=== PATIENT | female | born 1990 | race Caucasian/White ===

== ENCOUNTER 2017-01-23 11:45 | Inpatient (IN) | payer OTHER ==
[2017-01-23] MEDS ORDERED: DINOPROSTONE 10 MG VAGINAL SUPPOSITORY VG ONE (14:30)
[2017-01-23] MEDS ORDERED: PROMETHAZINE HCL 25 MG/1 ML VIAL IVPUSH ONE (14:31)
[2017-01-23] MEDS ORDERED: BUTORPHANOL TARTRATE 1 MG/ML VIAL IVPB ONE (14:31)
[2017-01-23] MEDS ORDERED: SODIUM PHOSPHATE/NA BIPHOS 133 ML ENEMA PR ONE (14:35)
[2017-01-23] MEDS ORDERED: DEXTROSE 5%-LACTATED RINGERS 1,000 ML IV SCH (14:45)
[2017-01-23 14:47] VITALS: BMI 27.8
--- NOTE | 2017-01-23 15:22 | HP ---
Past Medical History - Primary Care Physician PCP:: Cary Pena - Admission Chief Complaint: 26 yrs , 40.2 weeks sent from the clinic due to variable decleration noted on NST, BPP done today is reported VEL 6.35, largest pocket 2.71 cm, BPP 8/8, EFW 6'11". Due to Mild Oligohydramnios she is admitted for induction of labor History of Present Illness: PNC at [address] [place] [address] wt gain 14 lbs work Up: AB pos, Rpr nr, Hbsag neg, Rubella pos, Quantiferon neg, Hiv neg, ! hr Gtt 110, GBS neg. NTsreen neg, Modified sequential neg sono done reviewed . 22 weeks sono reported choroid plexus [id number] subsequent sono no mention of it. History Source: Patient, Medical Record Limitations to Obtaining History: No Limitations - Past Medical History PRESS FEEDER: Yes: Migraine (before , treated with sumigran plus. last migraine episode during , 3 months ago rx po Tylenol prn) Cardiovascular: No: HTN, Murmur Pulmonary: No: Asthma Gastrointestinal: No: Constipation Hepatobiliary: No: Cholelithiasis Renal/: No: UTI ...: 1 ...Para: 0 ...LMP: 04/16/ ... Weeks Gestation by Dates: 40.2 ...EDC by Dates: 01/21/17 ...EDC by Sono: 01/21/17 Infectious Disease: No: HIV, STD's Psych: No: Addictions, Anxiety, Bipolar, Depression Endocrine: Yes: Hypothyroidism (rx synthyroid 75 mcg). No: Diabetes Insipidus, Diabetes Mellitus - Past Surgical History Past Surgical History: Yes: Tonsillectomy (age 5 yrs) Hx Myomectomy: No Hx Transabdominal Cerclage: No - Smoking History Smoking history: Never smoked Have you smoked in the past 12 months: No - Alcohol/Substance Use Hx Alcohol Use: No History of Substance Use: reports: None Home Medications - Allergies Allergies/Adverse Reactions: Allergies Allergy/AdvReac Type Severity Reaction Status Date / Time No Known Allergies Allergy Verified 01/23/17 12:21 - Home Medications Home Medications: Ambulatory Orders Tablet 1 tab PO DAILY 01/23/17 Synthroid 75 mcg PO DAILY 04/21/17 Physical Exam - Maternity Vital Signs: Vital Signs Temperature 98.7 F 01/23/17 14:36 Pulse Rate 59 L 01/23/17 14:36 Respiratory Rate 20 01/23/17 14:36 Blood Pressure 123/72 01/23/17 14:36 O2 Sat by Pulse Oximetry (%) Constitutional: Yes: Well Nourished, No Distress Eyes: Yes: WNL HENT: Yes: WNL. No: Normocephalic Neck: Yes: WNL Cardiovascular: Yes: WNL Lungs: Clear to auscultation Breast(s): Yes: WNL - Abdominal Exam/OB Fundal Height: 40 Number of Fetuses: Single Presentation: Vertex Contractions: No Monitor Mode: External Heart Rate (range): 130-150 Heart Rate Location: [facility] Category: I Accelerations: Uniform Decelerations: None - Vaginal Exam/OB Vaginal Bleediing: No Speculum Exam: No Dilatation (cm): close Effacement (%): unefface Amniotic Membrane Status: Intact Presentation: Vertex/Position Station: -3 - Physical Exam Musculoskeletal: Yes: WNL Extremities: Yes: WNL Edema: Yes Edema: LLE: 1+, RLE: 1+ Integumentary: Yes: WNL Deep Tendon Reflex Grade: Normal +2 ...Motor Strength: WNL Psychiatric: Yes: WNL, Alert, Oriented - Labs Lab Results: Laboratory Tests 01/23/17 01/23/17 01/23/17 15:30 15:30 15:30 WBC 10.7 H Hgb 11.9 Hct 34.8 Plt Count 254 Neutrophils % 66.5 Lymphocytes % 25.1 Monocytes % 7.5 INR 0.92 PTT (Actin FS) 27.7 Sodium 136 Potassium 3.8 Chloride 105 Carbon Dioxide 24 BUN 9 Creatinine 0.5 L Random Glucose 73 L Calcium 8.7 Blood Type 01/23/17 15:30 WBC Hgb Hct Plt Count Neutrophils % Lymphocytes % Monocytes % INR PTT (Actin FS) Sodium Potassium Chloride Carbon Dioxide BUN Creatinine Random Glucose Calcium Blood Type AB POSITIVE Problem List - Problems (1) Post term over 40 weeks Code(s): O48.0 - POST-TERM (2) Oligohydramnios Code(s): O41.00X0 - OLIGOHYDRAMNIOS, UNSP TRIMESTER, NOT APPLICABLE OR UNSP Qualifiers: Trimester: third trimester (3) Elective induction of labor planned Code(s): [id number] - Assessment/Plan 26 yrs G1Po 40 .2 weeks , mild oligohydramnios( VEL 6.35cm) ,GBS neg, for induction of labor . Plan Cervidil Induction of labor Trial vaginal delivery
[2017-01-23 16:45] LABS: BASOPHIL 0.2 % (0-2.0); EOSINOPHIL 0.7 % (0-4.5); MCH 29.4 pg (25.7-33.7); MCHC 34.2 g/dl (32.0-36.0); MEAN CELL VOLUME 86.1 fl (80-96); MEAN PLT VOLUME 10.2 fl (7.5-11.1); NEUTROPHILS 66.5 % (42.8-82.8); PLATELET COUNT 254 K/MM3 (134-434); RDW 13.1 % (11.6-15.6); WHITE BLOOD COUNT 10.7 K/mm3 (4.0-10.0)
[2017-01-23 17:01] LABS: CALCIUM 8.7 mg/dL (8.5-10.1); COCKROFT - GAULT 188.3175; CREATININE 0.5 mg/dL (0.55-1.02)
[2017-01-23 17:24] LABS: INR 0.92 (0.82-1.09); PROTHROMBIN TIME (PATIENT) 10.1 SEC (9.98-11.88)
[2017-01-23 17:27] LABS: ACTIVATED PTT 27.7 SECONDS (26.9-34.4)
--- NOTE | 2017-01-24 00:22 | PN ---
Progress Note, Labor Vaginal Exam #1 Labor Exam Date: 01/24/17 Labor Exam Time: 00:15 Heart Rate (range): 140 Dilatation: 3 Effacement (%): 70 Amniotic Membrane Status: Intact Presentation: Vertex/Position Station: -2 (-2/-1) Remarks: fhr cat-1 uc q1-2 min cervidil removed fleets enema, shower Selected Entries 01/23/17 23:00 Temperature 98.3 F Pulse Rate 82 Blood Pressure 133/89 stadol prn Vaginal Exam #2 Labor Exam Date: 01/24/17 Labor Exam Time: 04:16 Heart Rate (range): 140-110 Dilatation: 6-7 Effacement (%): 90 Amniotic Membrane Status: Ruptured (AROM no fluid, scalp electrode) Presentation: Vertex/Position Station: 0 Remarks: recuurent late & variable decels are noted, bradycardia to 90- bpm 5 min position changed from rt lat to lt lat to back O2 continue pitocin was d/yoselyn plan delivery by primary c/section Note stadol was given at 1.15 am followed by epidural at 3.15 am
[2017-01-24] MEDS ORDERED: OXYTOCIN 15 UNITS/ LR 250 ML 250 ML IVPB SCH (02:20)
[2017-01-24] MEDS ORDERED: ELECTROLYTE-148 SOLN 500 ML IV ONE (03:00)
[2017-01-24] MEDS ORDERED: FENTANYL/BUPIVACAINE/NS/PF - PCEA - 50 ML DISP.SYRIN EP SCH (03:45)
[2017-01-24] MEDS ORDERED: CITRIC ACID/SODIUM CITRATE 30 ML UNIT-DOSE CUP PO ONE (04:29)
[2017-01-24] MEDS ORDERED: ELECTROLYTE-148 SOLN 1,000 ML IV SCH (04:30)
[2017-01-24 05:15] LABS: ARTERIAL BLOOD GAS BASE EXCESS -3.4 meq/l (-2-2); ARTERIAL BLOOD GAS PO2 13.5 mmHg (80-100); ARTERIAL BLOOD GAS pH 7.23 (7.35-7.45)
[2017-01-24 05:18] LABS: LPM/O2% 21%; PT. ON O2? NO; TYPE OF O2 ROOM AIR
[2017-01-24 05:19] LABS: ARTERIAL BLD GAS O2 SATURATION 11.4 % (90-98.9)
[2017-01-24 05:23] LABS: VENOUS BLOOD GAS HCO3 24.8 meq/L (19-25); VENOUS PH 7.3 (7.32-7.42)
[2017-01-24] MEDS ORDERED: morphine SULFATE/Preservative Free 0.5 MG/ML (1cc Syringe) EP ONE (05:25)
[2017-01-24] MEDS ORDERED: SENNOSIDES/DOCUSATE COMBO (SENNA PLUS) TABLET (UD) PO PRN (05:41)
[2017-01-24] MEDS ORDERED: METHYLERGONOVINE MALEATE 0.2 MG/1 ML AMP IM PRN (05:41)
[2017-01-24] MEDS ORDERED: ONDANSETRON 4 MG/2 ML VIAL IVPB PRN (05:47)
[2017-01-24] MEDS ORDERED: ACETAMINOPHEN 325 MG TABLET (FP) PO PRN (05:47)
--- NOTE | 2017-01-24 05:56 | OP ---
Operative Note - Note: Operative Date: 01/24/17 Pre-Operative Diagnosis: 40.3 weeks, oligohydramnios , non reassuring FHR Operation: Primary LFTC/Section Findings: 4.55am , baby girl, 9/9, wt 6'6" , Lop position , cord around neck, no fluid both tubes & ovaries normal. pulpit operator Dr Reddy present in the room Surgeon: Cary Pena Thermograph Operator: Zoila Bella Anesthesiologist/STRAIGHT CUTTER MACHINE: Steve Meyer Anesthesia: Epidural Specimens Removed: placenta. cord blood gas. cord blood Estimated Blood Loss (mls): 700 Drains, Volume Out (mls): 100 (severino output , jacoby color ) Fluid Volume Replaced (mls): 1,500 (iv ancef intraop) Operative Report Dictated: Yes
--- NOTE | 2017-01-24 06:14 | PN ---
Delivery - Delivery Section: Primary, Low Flap Transverse (indication : 40.3 weeks , oligohydramnios , non reassuring FHR) Type of Anesthesia: Epidural EBL (cc): 700 (100 ml severino out put, jacoby color ) Delivery, Single - Stages of Labor Date 1st Stage Initiatied: 01/23/17 Time 1st Stage Initiated: 22:00 Date of Delivery: 01/24/17 Time of Delivery: 04:55 Date Placenta Delivered: 01/24/17 Time Placenta Delivered: 04:56 Placenta: Yes: Manual Removal, Uterine Exploration - Condition of Infant Network Planner/Fingerprint Technician Present: Yes Name: Clary Reddy Gender: Female Weight: 6 lb 6 oz Position: Left, OP (cord around neck) Total Hours ROM (Hrs/Mins): 46 min, No fluid in utero - 1 Minute Total Score: 9 5 Minutes Total Score: 9 - [place] Feeding Plan Initial Plan: Exclusive throughout hospitalization Remarks - Remarks Remarks: 26 yrs 40.3 weeks ,oligohydramnios ( VEL 6.35) , variable decel on NT, Bpp8/8, admitted on 01/23/17 for induction of labor pnc at [address] [place] [address] GBS neg Cervidil inserted on 01/23/17 at 3.00pm , removed at 12.15 am 01/24/17 due to tachysystole stadol followed by epidural labor analgesia was given non reassuring FHR ( bradycardia 90bpm x5 min ) pt was taken for c/section Intraop IV ancef 1 gm given intraop course was uneventful
[2017-01-24] MEDS: D5W-LR W/ 20 UNITS OXYTOCIN 1,000 ML IV SCH ×2 (06:30→15:37)
--- NOTE | 2017-01-24 07:41 | OP ---
DATE OF OPERATION: 01/24/2017 PREOPERATIVE DIAGNOSIS: At 40.3 weeks, oligohydramnios, nonreassuring heart. OPERATION: Primary low flap transverse section. SURGEON: Cary Pena MD TRAFFIC LAW ATTORNEY SURGEON: Zoila Bella MD ANESTHESIA:Steve Meyer MD, epidural. FINDINGS: This is a 26-year-old 1, para 0 at 40.2 weeks who was admitted due to variable decelerations on the NST. Biophysical profile was 8/8 with oligohydramnios. VEL was 6.5. The patient was induced with a Cervidil, which was removed at 12:15 a.m., and she was 2-3 cm dilated. She had dilated up to 6-7 cm , and membranes were ruptured, and she had intermittent category 2 to category 1 tracing. Just before decision of the section, she had bradycardia of 90 beats per minute for 5 minutes, so it was decided to deliver via section. DESCRIPTION OF PROCEDURE: The patient is taken to the operating room table. Tang catheter was placed. Epidural was reinforced. Abdomen was shaved and prepped. She was in supine position. Abdomen was painted and draped with ChloraPrep and draped in the usual manner. Pfannenstiel incision was made in skin and subcutaneous tissue. Anterior rectus sheath was incised transversely. Bleeding points were clamped and cauterized. Rectus muscle was from the rectus sheath. Parietal peritoneum was opened vertically. The lower flap bladder peritoneum was incised transversely, and the lower uterine segment was incised transversely. There was umblical cord came out of the incision, and the baby was delivered from LOP position at 4:55 a.m., baby girl. Apgars were 9/9. The baby's weight is 6.6 pounds, 19 inches long. Cord was clamped. Cord blood was collected. Before that, cord segment was also preserved for the cord blood gas. Dr. Reddy, neonatalologist, was present in the room. Placenta was removed completely with the membranes and then the uterine incision was closed in 2 layers. First layer was a continuous locking with Biosyn single suture. Second layer was closed with a Biosyn single suture continuous intermittent locking. Vertical mattress sutures were taken. Hemostasis was checked, and bladder peritoneum also was closed with a Biosyn single suture. Both tubes and ovaries were normal. Irrigation was done. Sponge, instrument, and needle count was correct, and the closure of the abdominal wall and parietal peritoneum was closed with Vicryl 0 suture. Muscles were approximated together with Vicryl sutures. Intermittent sutures were taken and then anterior rectus sheath was closed with a Vicryl 0 suture. Continuous sutures were taken. Subcutaneous tissue was approximated with Biosyn single suture. Hemostasis was verified, and the skin was approximated with the frances. Pressure dressing was given. The patient tolerated the procedure well. Blood clots were removed from the vagina. She was transferred to the recovery room in stable condition. She reports IV Ancef 1 g prior to the incision, and an estimated blood loss of 700 mL. Intraoperative urine output was 100 mL. Javy [id number] MTDD
[2017-01-24] MEDS ORDERED: CEFAZOLIN (PRE-DOCKED) 50 ML IVPB ONE ×2 (09:44→17:02)
[2017-01-24] MEDS: CEFAZOLIN 1 GM/D5W 50 ML IVPB SCH ×2 (10:07→17:17)
[2017-01-24] MEDS: IBUPROFEN 800 MG/8 ML IJ IVPB PRN (20:07)
[2017-01-24] MEDS ORDERED: oxyCODONE HCL 5 MG TABLET PO PRN (22:00)
[2017-01-25] MEDS ORDERED: CEFAZOLIN (PRE-DOCKED) 50 ML IVPB ONE (01:28)
[2017-01-25] MEDS: CEFAZOLIN 1 GM/D5W 50 ML IVPB SCH (01:29)
[2017-01-25] MEDS: IBUPROFEN 800 MG/8 ML IJ IVPB PRN (04:57)
[2017-01-25] MEDS ORDERED: BISACODYL 10 MG SUPP.RECT RC PRN (05:41)
[2017-01-25] MEDS: D5W-LR W/ 20 UNITS OXYTOCIN 1,000 ML IV SCH (06:24)
[2017-01-25 08:51] LABS: BASOPHIL 0.2 % (0-2.0); EOSINOPHIL 0.2 % (0-4.5); MCH 29.5 pg (25.7-33.7); MCHC 33.9 g/dl (32.0-36.0); MEAN CELL VOLUME 87.2 fl (80-96); MEAN PLT VOLUME 9.2 fl (7.5-11.1); NEUTROPHILS 78.7 % (42.8-82.8); PLATELET COUNT 186 K/MM3 (134-434); RDW 13.7 % (11.6-15.6); WHITE BLOOD COUNT 15.1 K/mm3 (4.0-10.0)
[2017-01-25] MEDS: ENOXAPARIN NA (PORCINE) 40 MG/0.4 ML DISP.SYRIN SQ SCH (09:11)
[2017-01-25] MEDS: PRENATAL VITAMINS W/ FOLIC ACID TABLET (FP) PO SCH (09:11)
[2017-01-25] MEDS ORDERED: DIPHTH,PERTUSS(ACELL),TET 0.5 ML DISP.SYRIN IM ONE (10:00)
--- NOTE | 2017-01-25 10:00 | PN ---
Post Progress Note - Subjective Subjective: c/o pain , scale , 4-5/10 voided after severino is taken out Post Day: 1 Type of Delivery: Primary C/S Vital Signs: Vital Signs Temperature 97.8 F 01/25/17 08:23 Pulse Rate 68 01/25/17 08:23 Respiratory Rate 18 01/25/17 08:23 Blood Pressure 117/63 01/25/17 08:23 O2 Sat by Pulse Oximetry (%) 100 01/24/17 06:45 Breast Exam: Yes: Soft, Other (plans to BF ). No: Engorged Uterus: Yes: Fundus Firm, Fundus below umbilicus, Non-tender Incision: Yes: Dressing dry and intact. No: Redness, Oozing Abdomen/GI: Yes: Abdomen soft (bs active ), Passing flatus, Tolerating PO ( clear liqids ). No: Abdominal Distention, Tender Lochia: Yes: Rubra Lochia, amount: Moderate Extremities: Yes: Calves non-tender Perineum: Yes: Intact Activity: Ambulating - Labs Labs: CBC WBC 15.1 K/mm3 (4.0-10.0) H D 01/25/17 07:30 RBC 3.21 M/mm3 (3.60-5.2) L D 01/25/17 07:30 Hgb 9.5 GM/dL (10.7-15.3) L D 01/25/17 07:30 Hct 28.0 % (32.4-45.2) L D 01/25/17 07:30 MCV 87.2 fl (80-96) 01/25/17 07:30 MCHC 33.9 g/dl (32.0-36.0) 01/25/17 07:30 RDW 13.7 % (11.6-15.6) 01/25/17 07:30 Plt Count 186 K/MM3 (134-434) D 01/25/17 07:30 MPV 9.2 fl (7.5-11.1) 01/25/17 07:30 Neutrophils % 78.7 % (42.8-82.8) 01/25/17 07:30 Lymphocytes % 13.3 % (8-40) D 01/25/17 07:30 Monocytes % 7.6 % (3.8-10.2) 01/25/17 07:30 Eosinophils % 0.2 % (0-4.5) 01/25/17 07:30 Basophils % 0.2 % (0-2.0) 01/25/17 07:30 Problem List - Problems (1) Post term over 40 weeks Code(s): O48.0 - POST-TERM (2) Oligohydramnios Code(s): O41.00X0 - OLIGOHYDRAMNIOS, UNSP TRIMESTER, NOT APPLICABLE OR UNSP Qualifiers: Trimester: third trimester (3) Elective induction of labor planned Code(s): [id number] - Assessment/Plan stable. Anemia plan ct po care encourage po fluids & ambulation, & deep breathing
--- NOTE | 2017-01-25 15:03 | PN ---
Progress Note (short form) - Note Progress Note: 01/25/17 1504 ANESTHESIOLOGY POST-OP CHECK 26F s/p under epidural anesthesia POD #1. C/o mild headache that started ~1 hour ago and is not positional and feels like one of her previous migraines. Ambulating, tolerting PO. Denies N/V, backache, numbness, weakness. Pain 6/10 and tolerable. Vital Signs Temperature 97.8 F 01/25/17 08:23 Pulse Rate 68 01/25/17 08:23 Respiratory Rate 18 01/25/17 08:23 Blood Pressure 117/63 01/25/17 08:23 O2 Sat by Pulse Oximetry (%) 100 01/24/17 06:45 Active Medications Acetaminophen (Tylenol -) 650 mg PO Q4H PRN PRN Reason: FEVER OR PAIN Bisacodyl (Dulcolax Suppository -) 10 mg RC PRN PRN PRN Reason: CONSTIPATION Diphenhydramine HCl (Benadryl Injection -) 25 mg IVPUSH Q4H PRN PRN Reason: Pruritis Enoxaparin Sodium (Lovenox -) 40 mg SQ DAILY [facility] Last Admin: 01/25/17 09:11 Dose: 40 mg Ferrous Sulfate (Feosol -) 325 mg PO BID [facility] Dextrose/Lactated Ringer's (Pitocin 20 Units In D5-Lr -) 1,000 mls @ 125 mls/ hr IV ASDIR [facility] Last Admin: 01/25/17 06:24 Dose: Not Given Ibuprofen (Motrin -) 600 mg PO Q4H PRN PRN Reason: PAIN Ibuprofen (Caldolor Injection -) 800 mg IVPB Q8H PRN PRN Reason: PAIN OR FEVER Last Admin: 01/25/17 04:57 Dose: 800 mg Methylergonovine Maleate (Methergine Injection -) 0.2 mg IM Q4H PRN PRN Reason: Excessive Bleeding (L&D) Oxycodone HCl (Roxicodone -) 5 mg PO Q4H PRN PRN Reason: PAIN LEVEL 1-5 Oxycodone HCl (Roxicodone -) 10 mg PO Q4H PRN PRN Reason: PAIN LEVEL 6-10 Multivit/Folic Acid/Iron ( Vitamins (Sjr) -) 1 tab PO DAILY [facility] Last Admin: 01/25/17 09:11 Dose: 1 tab Senna/Docusate Sodium (Pericolace -) 2 tablet PO HS PRN PRN Reason: CONSTIPATION Simethicone (Mylicon -) 80 mg PO Q4H PRN PRN Reason: GAS Gen: Awake, alert Ext: No motor or sensory deficits No apparent anesthesia complications. pain controlled. Advised to increase fluid intake. Continue management as per primary team.
[2017-01-25] MEDS: ACETAMINOPHEN 325 MG TABLET (FP) PO PRN ×2 (15:22→21:27)
[2017-01-25] MEDS: SIMETHICONE 80 MG TAB.CHEW (FP) PO PRN (21:26)
[2017-01-25] MEDS: FERROUS SO4 325 MG TABLET (FP) PO SCH (21:26)
[2017-01-25] MEDS: oxyCODONE HCL 5 MG TABLET PO PRN (21:26)
[2017-01-26] MEDS: ACETAMINOPHEN 325 MG TABLET (FP) PO PRN ×3 (04:42→19:50)
[2017-01-26] MEDS: SIMETHICONE 80 MG TAB.CHEW (FP) PO PRN ×2 (04:43→19:53)
[2017-01-26] MEDS: oxyCODONE HCL 5 MG TABLET PO PRN ×3 (04:43→19:49)
[2017-01-26] MEDS: D5W-LR W/ 20 UNITS OXYTOCIN 1,000 ML IV SCH (06:04)
--- NOTE | 2017-01-26 07:56 | PN ---
Post Progress Note - Subjective Subjective: no c/o pain , scale 4-5. voiding without difficulty Post Day: 2 Type of Delivery: Primary C/S Vital Signs: Vital Signs Temperature 97.8 F 01/26/17 07:45 Pulse Rate 73 01/26/17 07:45 Respiratory Rate 18 01/26/17 07:45 Blood Pressure 120/80 01/26/17 07:45 O2 Sat by Pulse Oximetry (%) 100 01/24/17 06:45 Breast Exam: Yes: Soft. No: Engorged Uterus: Yes: Fundus Firm, Fundus below umbilicus, Non-tender Incision: Yes: [place] intact. No: Redness, Oozing Abdomen/GI: Yes: Abdomen soft, Passing flatus (bm not done ), Tolerating PO ( diet ). No: Abdominal Distention, Tender Lochia: Yes: Rubra Lochia, amount: Moderate Extremities: Yes: Calves non-tender, Edema Perineum: Yes: Intact Activity: Ambulating - Labs Labs: CBC WBC 15.1 K/mm3 (4.0-10.0) H D 01/25/17 07:30 RBC 3.21 M/mm3 (3.60-5.2) L D 01/25/17 07:30 Hgb 9.5 GM/dL (10.7-15.3) L D 01/25/17 07:30 Hct 28.0 % (32.4-45.2) L D 01/25/17 07:30 MCV 87.2 fl (80-96) 01/25/17 07:30 MCHC 33.9 g/dl (32.0-36.0) 01/25/17 07:30 RDW 13.7 % (11.6-15.6) 01/25/17 07:30 Plt Count 186 K/MM3 (134-434) D 01/25/17 07:30 MPV 9.2 fl (7.5-11.1) 01/25/17 07:30 Neutrophils % 78.7 % (42.8-82.8) 01/25/17 07:30 Lymphocytes % 13.3 % (8-40) D 01/25/17 07:30 Monocytes % 7.6 % (3.8-10.2) 01/25/17 07:30 Eosinophils % 0.2 % (0-4.5) 01/25/17 07:30 Basophils % 0.2 % (0-2.0) 01/25/17 07:30 Problem List - Problems (1) Post term over 40 weeks Code(s): O48.0 - POST-TERM (2) Oligohydramnios Code(s): O41.00X0 - OLIGOHYDRAMNIOS, UNSP TRIMESTER, NOT APPLICABLE OR UNSP Qualifiers: Trimester: third trimester (3) Elective induction of labor planned Code(s): VKA0726 - Assessment/Plan stable. . plan ct po care
[2017-01-26] MEDS: PRENATAL VITAMINS W/ FOLIC ACID TABLET (FP) PO SCH (10:27)
[2017-01-26] MEDS: FERROUS SO4 325 MG TABLET (FP) PO SCH ×2 (10:27→21:38)
[2017-01-26] MEDS: ENOXAPARIN NA (PORCINE) 40 MG/0.4 ML DISP.SYRIN SQ SCH (10:28)
[2017-01-27] MEDS: SIMETHICONE 80 MG TAB.CHEW (FP) PO PRN ×4 (05:25→20:29)
[2017-01-27] MEDS: oxyCODONE HCL 5 MG TABLET PO PRN ×4 (05:25→20:28)
[2017-01-27] MEDS: ACETAMINOPHEN 325 MG TABLET (FP) PO PRN ×2 (05:26→20:27)
--- NOTE | 2017-01-27 06:12 | PN ---
Post Progress Note - Subjective Subjective: pt resting, no acute distress Post Day: 3 Type of Delivery: Primary C/S Vital Signs: Vital Signs Temperature 98.2 F 01/26/17 20:36 Pulse Rate 80 01/26/17 20:36 Respiratory Rate 18 01/26/17 20:36 Blood Pressure 123/80 01/26/17 20:36 O2 Sat by Pulse Oximetry (%) 100 01/24/17 06:45 Breast Exam: Yes: Soft Uterus: Yes: Fundus Firm Incision: Yes: Simone intact Abdomen/GI: Yes: Abdomen soft Lochia: Yes: Rubra Lochia, amount: Small Extremities: Yes: Calves non-tender Perineum: Yes: Intact Activity: Ambulating - Labs Labs: CBC WBC 15.1 K/mm3 (4.0-10.0) H D 01/25/17 07:30 RBC 3.21 M/mm3 (3.60-5.2) L D 01/25/17 07:30 Hgb 9.5 GM/dL (10.7-15.3) L D 01/25/17 07:30 Hct 28.0 % (32.4-45.2) L D 01/25/17 07:30 MCV 87.2 fl (80-96) 01/25/17 07:30 MCHC 33.9 g/dl (32.0-36.0) 01/25/17 07:30 RDW 13.7 % (11.6-15.6) 01/25/17 07:30 Plt Count 186 K/MM3 (134-434) D 01/25/17 07:30 MPV 9.2 fl (7.5-11.1) 01/25/17 07:30 Neutrophils % 78.7 % (42.8-82.8) 01/25/17 07:30 Lymphocytes % 13.3 % (8-40) D 01/25/17 07:30 Monocytes % 7.6 % (3.8-10.2) 01/25/17 07:30 Eosinophils % 0.2 % (0-4.5) 01/25/17 07:30 Basophils % 0.2 % (0-2.0) 01/25/17 07:30 Assessment/Plan as above oob reg diet pain meds
[2017-01-27] MEDS: IBUPROFEN 600 MG TABLET (FP) PO PRN ×3 (08:12→20:27)
[2017-01-27 08:46] LABS: BASOPHIL 0.2 % (0-2.0); EOSINOPHIL 1.2 % (0-4.5); MCHC 33.1 g/dl (32.0-36.0); MEAN CELL VOLUME 87.5 fl (80-96); MEAN PLT VOLUME 7.9 fl (7.5-11.1); NEUTROPHILS 70.2 % (42.8-82.8); PLATELET COUNT 280 K/MM3 (134-434); RDW 13.4 % (11.6-15.6); WHITE BLOOD COUNT 12.6 K/mm3 (4.0-10.0)
[2017-01-27] MEDS: ENOXAPARIN NA (PORCINE) 40 MG/0.4 ML DISP.SYRIN SQ SCH (10:29)
[2017-01-27] MEDS: PRENATAL VITAMINS W/ FOLIC ACID TABLET (FP) PO SCH (10:29)
[2017-01-27] MEDS: FERROUS SO4 325 MG TABLET (FP) PO SCH ×2 (10:29→21:02)
[2017-01-27] MEDS: D5W-LR W/ 20 UNITS OXYTOCIN 1,000 ML IV SCH (10:30)
--- NOTE | 2017-01-28 08:11 | DS ---
Physical Exam-BEATER ROOM HELPER Vital Signs: Vital Signs Temperature 97.0 F L 01/27/17 22:00 Pulse Rate 73 01/27/17 22:00 Respiratory Rate 18 01/27/17 22:00 Blood Pressure 132/75 01/27/17 22:00 O2 Sat by Pulse Oximetry (%) 100 01/24/17 06:45 Constitutional: Yes: Well Nourished, Other (no dizziness) Eyes: Yes: WNL HENT: Yes: WNL Neck: Yes: Rigid Cardiovascular: Yes: WNL Respiratory: Yes: WNL Gastrointestinal: Yes: WNL, Normal Bowel Sounds, Soft, Other (bm done). No: Distention Renal/: Yes: WNL, Other (voiding without difficulty) ....Post : Yes: Uterus firm, Uterus non-tender, Moderate lochia rubra ( perineum intact) Breast(s): Yes: WNL (breast & bottle feeding) Musculoskeletal: Yes: WNL Extremities: Yes: WNL. No: Calf Tenderness Edema: Yes Edema: LLE: 1+, RLE: 1+ Wound/Incision: Yes: Clean/Dry, Well Approximated, Steri Strips, Open to air, [place] Removed. No: Draining, Reddened, Bleeding, Excoriated Neurological: Yes: WNL, Alert, Oriented ...Motor Strength: WNL Psychiatric: Yes: WNL Labs: CBC, BMP 01/27/17 08:00 01/23/17 15:30 Delivery - Delivery Section: Primary, Low Flap Transverse (indication : 40.3 weeks , oligohydramnios , non reassuring FHR) Type of Anesthesia: Spinal EBL (cc): 700 (100 ml severino out put, jacoby color ) Delivery, Single - Stages of Labor Date 1st Stage Initiatied: 01/23/17 Time 1st Stage Initiated: 22:00 Date of Delivery: 01/24/17 Time of Delivery: 04:55 Time Placenta Delivered: 04:56 Placenta: Yes: Manual Removal, Uterine Exploration - Condition of Infant Laser/Electro Optics Technician/Slip Laster Present: Yes Name: Clary Reddy Infant Gender: Female Weight: 6 lb 6 oz Position: Left, OP (cord around neck) Total Hours ROM (Hrs/Mins): 46 min, No fluid in utero - 1 Minute Total Score: 9 5 Minutes Total Score: 9 - Feeding Plan Initial Plan: Exclusive throughout hospitalization Remarks - Remarks Remarks: 26 yrs 40.3 weeks ,oligohydramnios ( VEL 6.35) , variable decel on NT, Bpp8/8, admitted on 01/23/17 for induction of labor pnc at [address] [place] [address] GBS neg Cervidil inserted on 01/23/17 at 3.00pm , removed at 12.15 am 01/24/17 due to tachysystole stadol followed by epidural labor analgesia was given non reassuring FHR ( bradycardia 90bpm x5 min ) pt was taken for c/section Intraop IV ancef 1 gm given intraop course was uneventful post op course uneventful. anemia counselled discharge today. Discharge Summary Reason For Visit: CERVIDIL INDUCTION Current Active Problems Anemia (Acute) Delivery by emergency section (Acute) Elective induction of labor planned (Acute) Non-reassuring electronic monitoring tracing (Acute) Oligohydramnios (Acute) Post term over 40 weeks (Acute) Condition: Stable - Instructions Diet, Activity, Other Instructions: Post Instructions DIET: Continue good diet high in protein, calcium, and iron rich foods. Drink at least eight (8) glasses of water daily in addition to other fluids. ct Regular diet MEDICATIONS: Continue vitamins and iron as previously directed. Motrin and Tylenol may be taken for minor discomfort. ACTIVITY: Mild to moderate exercise may be started in two (2) weeks. Take frequent rest periods. Resume normal activity after six (6) week check up. WOUND CARE OF OPERATIVE SITE: Continue use of perineal bottle until vaginal discharge stops. Keep area clean. Shower daily. Keep abdominal wound dry. Report any drainage or redness to physician. Tub baths, tampons and douches are not permitted for [address] Breast feeding & or Bottle feeding BREAST CARE: (For those that are not breast feeding): If engorgement occurs: Wear tight fitting bra. Take Tylenol or Motrin for pain. Apply cold packs (ice in bags to each breast ) FAMILY PLANNING: There are many control alternatives to pursue and they should be discussed at your first office visit. You may resume sexual activity after your six (6) week check up. (Remember, breast feeding is not a contraceptive) NEXT PHYSICIAN APPOINTMENT: Be certain to call for a one (1) week appointment, unless otherwise directed. wound check Call Clinic or got to Emergency Dept if you have any of the following: Heavy vaginal bleeding Painful urination Leg pain Unusual odor noted to vaginal bleeding High fever Red streaking noted on breast Referrals: Cary Pena MD [Staff Physician] - Disposition: HOME - Home Medications Comprehensive Discharge Medication List: Ambulatory Orders Tablet 1 tab PO DAILY 01/23/17 Synthroid 75 mcg PO DAILY 01/23/17 Acetaminophen [Tylenol .Regular Strength -] 650 mg PO Q4H PRN #0 tablet Ferrous Sulfate [Feosol] 325 mg PO BID #60 tab 01/27/17 Ibuprofen [Motrin -] 600 mg PO Q4H PRN #30 tablet 01/27/17 Vitamins (Sjr) - 1 tab PO DAILY tablet 01/27/17
[2017-01-28 09:16] VITALS: BP 126/77; PULSE 88; TEMP 98.2
[2017-01-28] MEDS: PRENATAL VITAMINS W/ FOLIC ACID TABLET (FP) PO SCH (09:36)
[2017-01-28] MEDS: ENOXAPARIN NA (PORCINE) 40 MG/0.4 ML DISP.SYRIN SQ SCH (09:36)
[2017-01-28] MEDS: FERROUS SO4 325 MG TABLET (FP) PO SCH (09:36)
--- NOTE | 2017-01-30 13:36 | PATH ---
Surgical Pathology Report Patient Name: MEMO GARCIA Med. Rec. #: [id number] /Age/Gender: 1990 (Age: 26) / F Account: [id number] Location: [facility] OBS/GAMING MANAGER Taken: 01/24/2017 Received: 01/26/2017 Reported: 01/30/2017 Physicians: Cary Pena M.D. Specimen(s) Received PLACENTA Clinical History at 40 weeks and 3 days; h/o anemia, migraines and hypothyroidism; non-reassuring FHR Primary c/section Final Diagnosis PLACENTA, DELIVERY: FOCALLY DISRUPTED, SMALL (<400 GM), THIRD TRIMESTER PLACENTA WITH MODERATE PREVILLOUS, PERIVILLOUS, AND PRECHORIONIC FIBRIN DEPOSITION, THREE VESSEL UMBILICAL CORD, AND UNREMARKABLE PLACENTAL MEMBRANES. Electronically Signed Percy Walton M.D. Gross Description The specimen is received fresh, labeled "placenta" and is a 309 gram, 17.0 x 12.5 x 2.1 cm placenta with attached membranes and umbilical cord. The attached membranes are cervantes focal opacities and insert marginally. The umbilical cord measures 17 cm in length and averages 0.8 cm in diameter. The cord inserts eccentrically, 4 cm to the nearest margin. No true knots or strictures are identified. Cut surface of the umbilical cord reveals 3 vessels. The surface is edmonds-blue with fibrin deposition and appropriate caliber vessels. The maternal surface is red-brown with focal defects. Sectioning reveals red-brown, spongy parenchyma. No focal lesions are identified. Technical Sales Representatives sections are submitted in three cassettes as follows: 1- membrane rolls and umbilical cord; 2-3- full thickness sections of placenta. /01/29/2017 [facility]01/29/2017
== END 2017-01-28 11:15 | disposition home or self-care (01) | DRG 765 ==
LOC: JDEL 11:45 → JLDR 14:10 → J3W 01-24 07:45
PROVIDERS: ADMIT Obstetrics & Gynecology; ATTEND Obstetrics & Gynecology
PROC: 10D00Z1 Extraction of Products of Conception, Low, Open Approach (ICD-10-PCS; principal; 2017-01-24)
DX: O76 Abnormality in fetal heart rate and rhythm complicating labor and delivery (principal); O41.03X0 Oligohydramnios, third trimester, not applicable or unspecified; O99.02 Anemia complicating childbirth; O48.0 Post-term pregnancy; Z3A.40 40 weeks gestation of pregnancy; Z37.0 Single live birth
CPT/HCPCS: 36415; 36600; 80048; 82803; 85025; 85610; 85730; 86593; 86850; 86900; 86901; 88307-TC; 90715